=== PATIENT | female | born 1985 | race Hispanic/Latino ===

== ENCOUNTER 2018-07-09 13:23 | Emergency (ER) | payer MEDICAID, SELFPAY ==
[2018-07-09 14:20] LABS: #Basophils 0.1 thou/uL (0.0-0.2); #Eosinphils 0.2 thou/uL (0.0-0.7); #Lymphocytes 2.2 thou/uL (1.20-3.40); #Monocytes 0.3 thou/uL (0.11-0.59); #Neutrophils 3.6 thou/uL (1.40-6.50); %Basophils 0.8 % (0.0-1.0); %Eosinophils 2.4 % (0.0-10.0); %Lymphocytes 34.9 % (21.0-51.0); %Monocytes 4.8 % (0.0-10.0); %Neutrophils 57.1 % (42.0-75.0); Hemoglobin 14.9 g/dL (12.0-16.0); Mean Corpuscular HGB CONC 33.6 g/dL (32.0-36.0); Mean Corpuscular Hemoglobin 28.8 pg (27.0-31.0); Mean Corpuscular Volume 85.7 fL (78.0-98.0); Mean Platelet Volume 7.4 fL (7.4-10.4); Platelet Count 319 thou/uL (130-400); RBC Distribution Width 11.8 % (11.5-14.5); Red Blood Cell (RBC) Count 5.18 mill/uL (4.20-5.40); White Blood Cell (WBC) Count 6.4 thou/uL (4.8-10.8)
[2018-07-09 14:30] LABS: ALT (SGPT) 104 U/L (8-55); AST (SGOT) 132 U/L (5-34); Albumin 4.1 g/dL (3.5-5.0); Alkaline Phosphatase 99 U/L (40-150); Anion Gap 16 mmol/L (10-20); BUN (Urea Nitrogen) 10 mg/dL (7.0-18.7); Bilirubin, Total 0.4 mg/dL (0.2-1.2); Calc. Creatinine Clearance 0 mL/min (70-130); Calcium 9.3 mg/dL (7.8-10.44); Carbon Dioxide 20 mmol/L (22-29); Chloride 103 mmol/L (98-107); Estimated GFR-MDRD Greater than 90; Globulin 3.5 g/dL (2.4-3.5); Glucose 329 mg/dL (70-105); Lipase 28 U/L (8-78); Potassium 3.6 mmol/L (3.5-5.1); Protein, Total 7.6 g/dL (6.0-8.3); Sodium 135 mmol/L (136-145)
[2018-07-09 14:53] LABS: Bilirubin Negative (Negative); Blood, Urine Negative (Negative); Clarity CLEAR (Clear); Glucose, Urine (Dipstick) >=1000 mg/dL (Negative); Leukocyte Negative (Negative); Nitrite Negative (Negative); Protein, Urine (Dipstick) Negative (Neg-Trace); Specific Gravity, Urine 1.039 (1.002-1.036); Urobilinogen 0.2 mg/dL (0.2-1.0); pH, Urine 5.5 (5.0-9.0)
[2018-07-09 14:56] LABS: Pregnancy Test - Urine (BHCG) Negative (Negative); Pregu Control Background? CLEAR/WHITE (CLR/WHITE); Pregu Control Bar Appear? YES (CONTROL BAR); Specific Gravity 1.039 (1.002-1.036)
== END 2018-07-09 15:42 | disposition home or self-care (01) ==
LOC: ERS 13:23
DX: R10.30 Lower abdominal pain, unspecified (principal); E11.9 Type 2 diabetes mellitus without complications; I10 Essential (primary) hypertension; F41.9 Anxiety disorder, unspecified; F32.9 Major depressive disorder, single episode, unspecified
CPT/HCPCS: 36415; 80053; 81003; 81025; 83690; 85025; 99284

== ENCOUNTER 2018-09-14 09:33 | Emergency (ER) | payer OTHER | END 2018-09-14 10:45 | disposition home or self-care (01) | LOC: ERS 09:33 | DX: H00.014 Hordeolum externum left upper eyelid (principal); E11.9 Type 2 diabetes mellitus without complications; I10 Essential (primary) hypertension; F41.9 Anxiety disorder, unspecified; F32.9 Major depressive disorder, single episode, unspecified | CPT/HCPCS: 99283 ==

== ENCOUNTER 2018-10-15 07:30 | Outpatient (CLI) | payer OTHER ==
--- NOTE | 2018-10-15 08:13 | ULT ---
Exam: Transabdominal and endovaginal pelvic ultrasound: HISTORY: Ovarian cysts COMPARISON: None TECHNIQUE: Transabdominal and endovaginal imaging of the pelvis is performed. Ovaries are interrogate d with grayscale, color flow, Doppler imaging and spectral wave form analysis. FINDINGS: Uterus: No myometrial masses. Uterus measurin.2 x 4.6 x 5.5 cm. Endometrium: Homogeneous echotexture. Endometrium diameter: 1.0 cm. Incidental nabothian cyst. Free fluid: None Left ovary: Normal echotexture. Left ovary measurements: 3.2 x 2.3 x 2.2 cm Right ovary: Not seen Right ovary measurement: Not applicable Ovarian Doppler: There is vascular flow to the left ovary. IMPRESSION: No evidence of an ovarian cyst. Transcribed Date/Time: 10/15/2018 8:50 AM
== END 2018-10-15 07:31 | disposition home or self-care (01) ==
LOC: BICULT 07:30
PROVIDERS: ATTEND Family Medicine
DX: Z87.42 Personal history of other diseases of the female genital tract (principal)
CPT/HCPCS: 76856

== ENCOUNTER 2018-10-20 04:50 | Emergency (ER) | payer OTHER ==
[2018-10-20 05:31] LABS: #Basophils 0.1 thou/uL (0.0-0.2); #Eosinphils 0.2 thou/uL (0.0-0.7); #Monocytes 0.5 thou/uL (0.11-0.59); #Neutrophils 5.2 thou/uL (1.40-6.50); %Basophils 0.9 % (0.0-1.0); %Lymphocytes 25.1 % (21.0-51.0); %Monocytes 5.8 % (0.0-10.0); %Neutrophils 66.2 % (42.0-75.0); Hemoglobin 14.2 g/dL (12.0-16.0); Mean Corpuscular HGB CONC 33.7 g/dL (32.0-36.0); Mean Corpuscular Hemoglobin 29.5 pg (27.0-31.0); Mean Corpuscular Volume 87.6 fL (78.0-98.0); Mean Platelet Volume 7.2 fL (7.4-10.4); Platelet Count 313 thou/uL (130-400); RBC Distribution Width 11.7 % (11.5-14.5); White Blood Cell (WBC) Count 7.9 thou/uL (4.8-10.8)
[2018-10-20 05:46] LABS: ALT (SGPT) 97 U/L (8-55); AST (SGOT) 167 U/L (5-34); Albumin 4.1 g/dL (3.5-5.0); Alkaline Phosphatase 138 U/L (40-150); Anion Gap 14 mmol/L (10-20); BUN (Urea Nitrogen) 11 mg/dL (7.0-18.7); Bilirubin, Total 1.1 mg/dL (0.2-1.2); Calc. Creatinine Clearance 0 mL/min (70-130); Calcium 9.5 mg/dL (7.8-10.44); Carbon Dioxide 26 mmol/L (22-29); Chloride 101 mmol/L (98-107); Estimated GFR-MDRD Greater than 90; Glucose 375 mg/dL (70-105); Lipase 24 U/L (8-78); Magnesium 1.6 mg/dL (1.6-2.6); Potassium 4.1 mmol/L (3.5-5.1); Protein, Total 7.1 g/dL (6.0-8.3); Sodium 137 mmol/L (136-145)
[2018-10-20] MEDS ORDERED: Morphine 4 MG/ML VIAL ONE (06:35)
[2018-10-20] MEDS ORDERED: Ketorolac Tromethamine 30 MG/ML VIAL ONE (06:35)
[2018-10-20] MEDS ORDERED: Ondansetron PF 4 MG/2 ML Vial ONE (06:35)
--- NOTE | 2018-10-20 07:19 | ULT ---
GALLBLADDER ULTRASOUND: Date: 10/20/18 CLINICAL HISTORY: Abdominal pain. FINDINGS: There is evidence of shadowing cholelithiasis. No wall thickening of the gallbladder is demonstrated. The common duct is normal at 4 mm. Increased echogenicity of the hepatic parenchyma is present. No a scites. Orantes's sign reported as negative by quality assurance representative. IMPRESSION: 1. Sonographic evidence of cholelithiasis. No sonographic findings to indicate acute cholecystitis. 2. Findings which likely are related to hepatic steatosis. This could be further assessed with dedic ated liver function enzymes. POS: AMANDA
[2018-10-20 07:26] LABS: Bilirubin Negative (Negative); Blood, Urine Negative (Negative); Clarity CLEAR (Clear); Glucose, Urine (Dipstick) >=1000 mg/dL (Negative); Leukocyte Negative (Negative); Nitrite Negative (Negative); Protein, Urine (Dipstick) Negative (Neg-Trace); pH, Urine 5.5 (5.0-9.0)
[2018-10-20 07:35] LABS: Specific Gravity, Urine 1.043 (1.002-1.036)
[2018-10-20 07:38] LABS: Pregnancy Test - Urine (BHCG) Negative (Negative); Pregu Control Background? CLEAR/WHITE (CLR/WHITE); Pregu Control Bar Appear? YES (CONTROL BAR); Specific Gravity 1.043 (1.002-1.036)
--- NOTE | 2018-10-20 07:52 | RAD ---
EXAM: Single view of the chest HISTORY: Right chest pain for one hour COMPARISON: None FINDINGS: Single view of the chest shows a normal sized cardiomediastinal silhouette. There is no ana dence of consolidation, mass, or pleural effusion. The bones are unremarkable. IMPRESSION: No evidence of acute cardiopulmonary disease
--- NOTE | 2018-10-20 12:42 | CON ---
DATE OF CONSULTATION: CHIEF COMPLAINT: Right upper quadrant abdominal pain. HISTORY OF PRESENT ILLNESS: The patient is a 33-year-old female, who reports a 12-hour history of right upper quadrant pain radiating to back, associated with nausea. No vomiting. No fever. Her last meal was at 7 p.m. She says she has had lesser episodes of this. PAST MEDICAL HISTORY: Morbid obesity, hypertension, and diabetes. PAST SURGICAL HISTORY: She has had a section. MEDICATIONS: 1. Metformin. 2. Exforge for hypertension. ALLERGIES: NO KNOWN DRUG ALLERGIES. SOCIAL HISTORY: She is . No tobacco. Moderate alcohol. Unemployed. FAMILY HISTORY: Heart disease. PHYSICAL EXAMINATION: GENERAL: She is afebrile, pulse 79, blood pressure 138/92, and oxygen saturation 98%. GENERAL: She is an obese female, in no apparent distress. HEENT: No jaundice. LUNGS: Clear. HEART: Regular rate and rhythm. ABDOMEN: Obese, very mild tenderness in the right upper quadrant. No palpable masses. No hernias. EXTREMITIES: Unremarkable. LABORATORY DATA: White count 7.9, H and H of 14 and 42, and platelet count 313. Electrolytes are fine, but her glucose is elevated at 375. Her AST is 167, ALT of 97, and bilirubin and alkaline phosphatase normal. She had an ultrasound that shows cholelithiasis, but no wall thickening or pericholecystic fluid. Normal common bile duct size. ASSESSMENT: Severe biliary colic. PLAN: I offered her surgery today. She says this is not convenient for her. She would like to go home, come back to the office and reschedule. She will stay on a low-fat diet in the mean time. Job ID: [id number]
== END 2018-10-20 10:41 | disposition home or self-care (01) ==
LOC: ERS 04:50
DX: K80.70 Calculus of gallbladder and bile duct without cholecystitis without obstruction (principal); I10 Essential (primary) hypertension; E11.9 Type 2 diabetes mellitus without complications; F41.9 Anxiety disorder, unspecified; F32.9 Major depressive disorder, single episode, unspecified; Z79.84 Long term (current) use of oral hypoglycemic drugs
CPT/HCPCS: 36415; 71045; 76705; 80053; 81003; 81025; 83690; 83735; 84484; 85025; 93005; 96361; 96374; 96375; J1885; J2270; J2405

== ENCOUNTER 2018-10-27 00:20 | Outpatient (CLI) | payer OTHER ==
[2018-10-27 11:08] LABS: #Eosinphils 0.2 thou/uL (0.0-0.7); #Lymphocytes 2.5 thou/uL (1.20-3.40); #Monocytes 0.3 thou/uL (0.11-0.59); #Neutrophils 3.4 thou/uL (1.40-6.50); %Basophils 0.7 % (0.0-1.0); %Monocytes 4.4 % (0.0-10.0); %Neutrophils 52.8 % (42.0-75.0); Hemoglobin 14.6 g/dL (12.0-16.0); Mean Corpuscular HGB CONC 34.6 g/dL (32.0-36.0); Mean Corpuscular Volume 86.7 fL (78.0-98.0); Mean Platelet Volume 7.5 fL (7.4-10.4); Platelet Count 312 thou/uL (130-400); RBC Distribution Width 11.6 % (11.5-14.5); Red Blood Cell (RBC) Count 4.86 mill/uL (4.20-5.40); White Blood Cell (WBC) Count 6.4 thou/uL (4.8-10.8)
[2018-10-27 11:22] LABS: BHCG - Serum Negative (NEGATIVE); Pregs Control Background? CLEAR/WHITE (CLR/WHITE); Pregs Control Bar Appear? YES (CONTROL BAR)
[2018-10-27 11:30] LABS: ALT (SGPT) 118 U/L (8-55); AST (SGOT) 114 U/L (5-34); Albumin 4.4 g/dL (3.5-5.0); Alkaline Phosphatase 113 U/L (40-150); Anion Gap 14 mmol/L (10-20); BUN (Urea Nitrogen) 11 mg/dL (7.0-18.7); Bilirubin, Direct 0.2 mg/dL (0.1-0.3); Bilirubin, Total 0.6 mg/dL (0.2-1.2); Calc. Creatinine Clearance 0 mL/min (70-130); Calcium 9.8 mg/dL (7.8-10.44); Carbon Dioxide 27 mmol/L (22-29); Chloride 100 mmol/L (98-107); Estimated GFR-MDRD Greater than 90; Globulin 3.3 g/dL (2.4-3.5); Glucose 274 mg/dL (70-105); Potassium 3.9 mmol/L (3.5-5.1); Protein, Total 7.7 g/dL (6.0-8.3); Sodium 137 mmol/L (136-145)
--- NOTE | 2018-10-28 22:54 | EKG ---
Test Reason : Blood Pressure : / mmHG Vent. Rate : 079 BPM Atrial Rate : 079 BPM P-R Int : 140 ms QRS Dur : 090 ms QT Int : 374 ms P-R-T Axes : -49 071 057 degrees QTc Int : 428 ms Sinus rhythm rate of 79 J point elevation, suggests early repolarization. Abnormal ECG When compared with ECG of 20-OCT-2018 05:02, (Unconfirmed) No significant change was found Confirmed by ROSA MCKENNA ([id number]) on 10/28/2018 10:54:14 PM Referred By: IKE Confirmed By:ROSA MCKENNA
== END 2018-10-27 00:21 | disposition home or self-care (01) ==
LOC: LABBT 00:20
PROVIDERS: ATTEND Surgery
DX: Z01.818 Encounter for other preprocedural examination (principal); K80.20 Calculus of gallbladder without cholecystitis without obstruction
CPT/HCPCS: 80053; 80076; 84703; 85025; 93005; 93010

== ENCOUNTER 2018-10-29 08:20 | Day surgery (SDC) | payer OTHER ==
[2018-10-27 09:29] VITALS: BMI 51.6
[2018-10-29] MEDS ORDERED: Sodium Chloride 0.9% 100 ML ONE (10:12)
[2018-10-29] MEDS ORDERED: cefOXitin 2 GM VIAL ONE (10:12)
[2018-10-29] MEDS ORDERED: Insulin Regular 300 UNITS/3 ML VIAL ONE (10:45)
[2018-10-29] MEDS ORDERED: Bupivacaine/Epinephrine 0.25% 30 ML VIAL ONE (11:03)
[2018-10-29] MEDS ORDERED: Lidocaine 2% Jelly 5 ML TUBE ONE (11:15)
[2018-10-29] MEDS ORDERED: Fentanyl 100 MCG/2 ML VIAL ONE ×3 (11:15→13:58)
--- NOTE | 2018-10-29 15:21 | OP ---
DATE OF PROCEDURE: 10/29/2018 PREOPERATIVE DIAGNOSIS: Symptomatic cholelithiasis. PROCEDURE PERFORMED: Laparoscopic cholecystectomy. INDICATIONS: A 33-year-old female, morbidly obese, who has been to the emergency room several times for severe right upper quadrant pain. Ultrasound shows cholelithiasis. FINDINGS: She had a single large stone. She had a very fatty liver. DESCRIPTION OF PROCEDURE: After informed consent was obtained, the patient was taken to the operating room, given general endotracheal anesthesia, placed in supine position. Abdomen was prepped and draped in usual fashion. Local anesthesia infiltrated subcutaneously and deep, and an upper midline incision was performed. Subcu divided sharply. The fascia grasped and 2 stay sutures were placed in either side of midline. We had to use appendiceal retractors due to the depth of her adipose tissue. The fascia was visualized, incised with 11 blade. Digital palpation revealed no local adhesions. A blunt 12 mm trocar inserted. Pneumoperitoneum was created to a pressure of 15 mmHg. A 0-degree laparoscope was inserted under direct vision. Three 5 mm ports were placed subcostally. Gallbladder grasped, advanced superiorly. The peritoneum was dissected distally to expose the cystic duct and artery. These were triply ligated with hemoclips and divided. The gallbladder removed from its fossa utilizing electrocautery, removed from the abdomen through the lower midline incision. Hemostasis achieved with electrocautery. The fascia closed with interrupted 2-0 Vicryl suture. The skin closed with interrupted 4-0 Rapide. A 3-0 Vicryl was also placed in the subcu in the midline incision. Dermabond applied. The patient tolerated the procedure well, transferred to Recovery in good condition. Sponge and needle count verified correct x2. Job ID: [id number]
[2018-10-29] MEDS ORDERED: HYDROcodone/Acetaminophen 5/325 mg Tablet ONE (15:22)
[2018-10-29] MEDS ORDERED: Glycopyrrolate 0.2 MG/ML 5 ML SYRINGE ONE (15:26)
[2018-10-29] MEDS ORDERED: Rocuronium Bromide 10 MG/ML (10ML VIAL) ONE (15:26)
[2018-10-29] MEDS ORDERED: Ketorolac Tromethamine 30 MG/ML VIAL ONE (15:26)
[2018-10-29] MEDS ORDERED: Ondansetron PF 4 MG/2 ML Vial ONE (15:26)
[2018-10-29] MEDS ORDERED: Lidocaine 1% PF 5 ML VIAL ONE (15:26)
[2018-10-29] MEDS ORDERED: PHENYLEPHRINE-NS 100 MCG/ML 10 ML SYRINGE ONE (15:26)
[2018-10-29] MEDS ORDERED: PROPOFOL 200 MG/20 ML VIAL ONE (15:26)
== END 2018-10-29 16:15 | disposition home or self-care (01) ==
LOC: SDC 08:20
PROVIDERS: ATTEND Surgery
PROC: 0FT44ZZ Resection of Gallbladder, Percutaneous Endoscopic Approach (ICD-10-PCS; principal; 2018-10-29)
DX: K80.10 Calculus of gallbladder with chronic cholecystitis without obstruction (principal); K76.0 Fatty (change of) liver, not elsewhere classified; F41.9 Anxiety disorder, unspecified; J45.909 Unspecified asthma, uncomplicated; E78.00 Pure hypercholesterolemia, unspecified; F32.9 Major depressive disorder, single episode, unspecified; E11.9 Type 2 diabetes mellitus without complications; I10 Essential (primary) hypertension; E66.01 Morbid (severe) obesity due to excess calories; Z68.43 Body mass index [BMI] 50.0-59.9, adult; Z79.84 Long term (current) use of oral hypoglycemic drugs; Z79.899 Other long term (current) drug therapy
CPT/HCPCS: 36416; 88304; J0131; J0694; J1815; J1885; J2001; J2405; J2704; J3010; J3490

== ENCOUNTER 2018-12-18 07:10 | Emergency (ER) | payer OTHER ==
[2018-12-18 08:12] LABS: Bilirubin Negative (Negative); Blood, Urine Negative (Negative); Clarity CLEAR (Clear); Glucose, Urine (Dipstick) 100 mg/dL (Negative); Leukocyte Trace (Negative); Nitrite Negative (Negative); Protein, Urine (Dipstick) Negative (Neg-Trace); Specific Gravity, Urine 1.014 (1.002-1.036); Urobilinogen 0.2 mg/dL (0.2-1.0)
[2018-12-18 08:13] LABS: Bacteria/HPF Rare-Few HPF (None Seen); Hyaline Casts/LPF 0-3 HYALINE CAST LPF (0-3 Hyaline); Pathc Cast-AUWi Flag 0.13 (0-2.49); RBC/HPF 0-3 HPF (0-3); Squamous Epithelial 0-3 HPF (0-3)
[2018-12-18 08:16] LABS: Pregnancy Test - Urine (BHCG) Negative (Negative)
[2018-12-18 08:17] LABS: Pregu Control Background? CLEAR/WHITE (CLR/WHITE); Pregu Control Bar Appear? YES (CONTROL BAR); Specific Gravity 1.014 (1.002-1.036)
== END 2018-12-18 08:54 | disposition home or self-care (01) ==
LOC: ERS 07:10
DX: R10.30 Lower abdominal pain, unspecified (principal); E11.9 Type 2 diabetes mellitus without complications; R11.0 Nausea; I10 Essential (primary) hypertension; F41.9 Anxiety disorder, unspecified; F32.9 Major depressive disorder, single episode, unspecified; Z79.899 Other long term (current) drug therapy; Z79.84 Long term (current) use of oral hypoglycemic drugs
CPT/HCPCS: 81003; 81015; 81025; 99284

== ENCOUNTER 2019-03-24 07:17 | Emergency (ER) | payer OTHER ==
[2019-03-24 08:01] LABS: Pregnancy Test - Urine (BHCG) Negative (Negative); Pregu Control Bar Appear? YES (CONTROL BAR)
[2019-03-24 08:02] LABS: Pregu Control Background? CLEAR/WHITE (CLR/WHITE)
[2019-03-24 08:16] LABS: Bilirubin Negative (Negative); Blood, Urine Negative (Negative); Clarity Clear (Clear); Glucose, Urine (Dipstick) Greater than 1000 mg/dL (Negative); Leukocyte Negative Leu/uL (Negative); Nitrite Negative (Negative); Protein, Urine (Dipstick) Negative (Neg-Trace); Urobilinogen Normal mg/dL (Less than 2)
== END 2019-03-24 09:54 | disposition home or self-care (01) ==
LOC: ERS 07:17
DX: M54.5 Low back pain (principal); G89.29 Other chronic pain; E11.9 Type 2 diabetes mellitus without complications; I10 Essential (primary) hypertension; F41.9 Anxiety disorder, unspecified; F32.9 Major depressive disorder, single episode, unspecified; Z79.899 Other long term (current) drug therapy; Z79.84 Long term (current) use of oral hypoglycemic drugs
CPT/HCPCS: 81003; 81025; 96372; 99283

== ENCOUNTER 2019-04-12 10:24 | Emergency (ER) | payer OTHER ==
[2019-04-12 11:32] LABS: Bilirubin Negative (Negative); Blood, Urine Negative (Negative); Clarity Clear (Clear); Glucose, Urine (Dipstick) Greater than 1000 mg/dL (Negative); Leukocyte Negative Leu/uL (Negative); Nitrite Negative (Negative); Protein, Urine (Dipstick) Negative (Neg-Trace); Urobilinogen Normal mg/dL (Less than 2)
[2019-04-12 11:34] LABS: Pregnancy Test - Urine (BHCG) Negative (Negative); Pregu Control Background? CLEAR/WHITE (CLR/WHITE); Pregu Control Bar Appear? YES (CONTROL BAR); Specific Gravity 1.029 (1.002-1.036)
== END 2019-04-12 12:19 | disposition home or self-care (01) ==
LOC: ERS 10:24
DX: E11.65 Type 2 diabetes mellitus with hyperglycemia (principal); I10 Essential (primary) hypertension; F41.9 Anxiety disorder, unspecified; F32.9 Major depressive disorder, single episode, unspecified; Z79.84 Long term (current) use of oral hypoglycemic drugs
CPT/HCPCS: 36416; 81003; 81025; 99283

== ENCOUNTER 2019-04-16 07:28 | Outpatient (CLI) | payer OTHER ==
--- NOTE | 2019-04-16 08:34 | RAD ---
XR Lumbar Spine 2 Or 3 View: 04/16/2019 12:00 AM CLINICAL INDICATION: Low back pain COMPARISON: None. FINDINGS: Fracture:No fracture. Arthropathy:Mild facet sclerosis. Mild levocurvature of lumbar spine. Incidental findings:None of significance. IMPRESSION: 1. No acute osseous abnormality.
== END 2019-04-16 07:29 | disposition home or self-care (01) ==
LOC: BICRAD 07:28
PROVIDERS: ATTEND Family Medicine
DX: M54.5 Low back pain (principal)
CPT/HCPCS: 72100

== ENCOUNTER 2020-07-04 07:51 | Emergency (ER) | payer OTHER ==
[2020-07-04 08:22] LABS: #Basophils 0.1 thou/uL (0.0-0.2); #Eosinphils 0.2 thou/uL (0.0-0.7); #Monocytes 0.4 thou/uL (0.11-0.59); %Basophils 0.9 % (0.0-1.0); %Eosinophils 2.9 % (0.0-10.0); %Lymphocytes 39.5 % (21.0-51.0); %Monocytes 4.7 % (0.0-10.0); %Neutrophils 52.1 % (42.0-75.0); Hemoglobin 15.4 g/dL (12.0-16.0); Mean Corpuscular HGB CONC 33.6 g/dL (32.0-36.0); Mean Corpuscular Hemoglobin 29.2 pg (27.0-31.0); Mean Corpuscular Volume 86.9 fL (78.0-98.0); Mean Platelet Volume 7.5 fL (7.4-10.4); Platelet Count 387 thou/uL (130-400); RBC Distribution Width 11.2 % (11.5-14.5); Red Blood Cell (RBC) Count 5.27 mill/uL (4.20-5.40); White Blood Cell (WBC) Count 7.7 thou/uL (4.8-10.8)
[2020-07-04 08:43] LABS: ALT (SGPT) 48 U/L (8-55); AST (SGOT) 42 U/L (5-34); Albumin 4.4 g/dL (3.5-5.0); Alkaline Phosphatase 108 U/L (40-110); Anion Gap 16 mmol/L (10-20); BUN (Urea Nitrogen) 11 mg/dL (7.0-18.7); Bilirubin, Total 0.4 mg/dL (0.2-1.2); Calc. Creatinine Clearance 0 mL/min (70-130); Calcium 9.2 mg/dL (7.8-10.44); Carbon Dioxide 24 mmol/L (22-29); Chloride 100 mmol/L (98-107); Globulin 3.5 g/dL (2.4-3.5); Glucose 386 mg/dL (70-105); Lipase 29 U/L (8-78); Potassium 4.4 mmol/L (3.5-5.1); Protein, Total 7.9 g/dL (6.0-8.3); Sodium 136 mmol/L (136-145)
[2020-07-04 09:09] LABS: Pregnancy Test - Urine (BHCG) Negative (Negative)
[2020-07-04 09:10] LABS: Pregu Control Background? CLEAR/WHITE (CLR/WHITE); Pregu Control Bar Appear? YES (CONTROL BAR); Specific Gravity 1.043 (1.002-1.036)
[2020-07-04 09:22] LABS: Bilirubin Negative (Negative); Blood, Urine Negative (Negative); Clarity Clear (Clear); Glucose, Urine (Dipstick) Greater than 1000 mg/dL (Negative); Ketone, Urine 10 mg/dL (Negative); Leukocyte Negative Leu/uL (Negative); Nitrite Negative (Negative); Protein, Urine (Dipstick) Negative (Neg-Trace); Specific Gravity, Urine 1.045 (1.002-1.036); Urobilinogen Normal mg/dL (Less than 2)
[2020-07-04] MEDS ORDERED: Iopamidol-370 76% 500 ML 1 ML ONE (09:26)
--- NOTE | 2020-07-04 10:29 | CT ---
CT Abdomen Pelvis W Con History: Left upper quadrant pain Comparison: None. Findings: 3 mm nodule right middle lobe. No pericardial effusion. No significant pleural effusion. Small ventral fat-containing supraumbilical hernia with a 2.5 cm neck. Prior cholecystectomy. The spl een, pancreas, adrenal glands, kidneys are unremarkable. No hydronephrosis. Adrenal glands are normal. No free intraperitoneal gas or fluid. No dilated loops of large or small bowel. The appendix is visualized and is normal. Bilateral L5 pars interarticularis defects without signific ant listhesis. No acute osseous abnormality. Impression: 1. Omental fat-containing supraumbilical hernia with a 2.5 cm neck. No inflammation. 2. Normal appendix. 3. No acute inflammatory process within the abdomen or pelvis.
== END 2020-07-04 11:15 | disposition home or self-care (01) ==
LOC: ERS 07:51
DX: R10.12 Left upper quadrant pain (principal); E11.65 Type 2 diabetes mellitus with hyperglycemia; I10 Essential (primary) hypertension
CPT/HCPCS: 74177; 80053; 81003; 81025; 83690; 85025; Q9967

== ENCOUNTER 2020-09-07 11:33 | Outpatient (CLI) | payer OTHER ==
[2020-09-07 21:51] LABS: SARS-CoV-2 PCR by NAA Not Detected (NotDetected)
== END 2020-09-07 11:34 | disposition home or self-care (01) ==
LOC: LABBT 11:33
PROVIDERS: ATTEND Internal Medicine Gastroenterology
DX: K76.0 Fatty (change of) liver, not elsewhere classified (principal); R10.12 Left upper quadrant pain; E11.9 Type 2 diabetes mellitus without complications; Z20.822 Contact with and (suspected) exposure to COVID-19
CPT/HCPCS: 87635; U0003; U0005

== ENCOUNTER 2020-09-12 05:48 | Day surgery (SDC) | payer OTHER ==
[2020-09-08 13:10] VITALS: BMI 50.3
[2020-09-12] MEDS ORDERED: Fentanyl 100 MCG/2 ML VIAL ONE (07:47)
[2020-09-12] MEDS ORDERED: PROPOFOL 200 MG/20 ML VIAL ONE (10:13)
== END 2020-09-12 09:15 | disposition home or self-care (01) ==
LOC: SDC 05:48
PROVIDERS: ATTEND Internal Medicine Gastroenterology
PROC: 0DB98ZX Excision of Duodenum, Via Natural or Artificial Opening Endoscopic, Diagnostic (ICD-10-PCS; principal; 2020-09-12)
PROC: 0DB68ZX Excision of Stomach, Via Natural or Artificial Opening Endoscopic, Diagnostic (ICD-10-PCS; principal; 2020-09-12)
DX: K29.50 Unspecified chronic gastritis without bleeding (principal); K76.0 Fatty (change of) liver, not elsewhere classified; E11.9 Type 2 diabetes mellitus without complications; I10 Essential (primary) hypertension; F31.9 Bipolar disorder, unspecified; E66.9 Obesity, unspecified; Z68.43 Body mass index [BMI] 50.0-59.9, adult; Z79.84 Long term (current) use of oral hypoglycemic drugs; Z79.899 Other long term (current) drug therapy
CPT/HCPCS: 88305; 88312; J2704; J3010

== ENCOUNTER 2021-04-06 07:13 | Emergency (ER) | payer OTHER | END 2021-04-06 09:00 | disposition home or self-care (01) | LOC: ERS 07:13 | DX: J02.9 Acute pharyngitis, unspecified (principal); Z71.1 Person with feared health complaint in whom no diagnosis is made; E11.9 Type 2 diabetes mellitus without complications; I10 Essential (primary) hypertension; Z79.899 Other long term (current) drug therapy | CPT/HCPCS: 99282 ==

== ENCOUNTER 2021-07-12 07:07 | Emergency (ER) | payer OTHER ==
[2021-07-12] MEDS ORDERED: Acetaminophen 500 MG TAB ONE (07:52)
== END 2021-07-12 09:39 | disposition home or self-care (01) ==
LOC: ERS 07:07
DX: M54.50 Low back pain, unspecified (principal); I10 Essential (primary) hypertension; E11.9 Type 2 diabetes mellitus without complications
CPT/HCPCS: 99283

== ENCOUNTER 2022-09-21 09:53 | Emergency (ER) | payer OTHER ==
[2022-09-21 10:19] LABS: #Eosinphils 0.1 thou/uL (0.0-0.7); #Lymphocytes 0.9 thou/uL (1.20-3.40); #Monocytes 0.3 thou/uL (0.11-0.59); #Neutrophils 10.1 thou/uL (1.40-6.50); %Basophils 0.4 % (0.0-1.0); %Eosinophils 1.3 % (0.0-10.0); %Lymphocytes 7.7 % (21.0-51.0); %Monocytes 2.3 % (0.0-10.0); %Neutrophils 88.3 % (42.0-75.0); Hemoglobin 16.2 g/dL (12.0-16.0); Mean Corpuscular HGB CONC 34.6 g/dL (32.0-36.0); Mean Corpuscular Hemoglobin 29.8 pg (27.0-31.0); Mean Corpuscular Volume 86.2 fl (78.0-98.0); Platelet Count 328 10x3/uL (130-400); RBC Distribution Width 11.3 % (11.5-14.5); Red Blood Cell (RBC) Count 5.43 mill/uL (4.20-5.40); White Blood Cell (WBC) Count 11.5 10x3/uL (4.8-10.8)
[2022-09-21] MEDS ORDERED: Ondansetron ODT 4 MG TAB ONE (10:24)
[2022-09-21 10:44] LABS: ALT (SGPT) 31 U/L (8-55); AST (SGOT) 40 U/L (5-34); Albumin 4.3 g/dL (3.5-5.0); Alkaline Phosphatase 131 U/L (40-110); Anion Gap 17 mmol/L (10-20); BUN (Urea Nitrogen) 11 mg/dL (7.0-18.7); Bilirubin, Total 0.6 mg/dL (0.2-1.2); Calc. Creatinine Clearance 0 mL/min (70-130); Carbon Dioxide 23 mmol/L (22-29); Chloride 100 mmol/L (98-107); Estimated GFR 116; Globulin 3.2 g/dL (2.4-3.5); Glucose 384 mg/dL (70-105); Protein, Total 7.5 g/dL (6.0-8.3); Sodium 136 mmol/L (136-145)
[2022-09-21 11:19] LABS: Bilirubin Negative (Negative); Blood, Urine Negative (Negative); Clarity Clear (Clear); Glucose, Urine (Dipstick) Greater than 1000 mg/dL (Negative); Ketone, Urine 10 mg/dL (Negative); Leukocyte Negative Leu/uL (Negative); Nitrite Negative (Negative); Protein, Urine (Dipstick) 10 mg/dL (Neg-Trace); Urobilinogen Normal mg/dL (Less than 2); pH, Urine 5.5 (5.0-9.0)
[2022-09-21 11:21] LABS: Pregnancy Test - Urine (BHCG) Negative (Negative)
[2022-09-21 11:22] LABS: Pregu Control Background? CLEAR/WHITE (CLR/WHITE); Pregu Control Bar Appear? YES (CONTROL BAR)
== END 2022-09-21 11:53 | disposition home or self-care (01) ==
LOC: ERS 09:53
DX: M54.9 Dorsalgia, unspecified (principal); E11.9 Type 2 diabetes mellitus without complications; I10 Essential (primary) hypertension
CPT/HCPCS: 36415; 80053; 81003; 81025; 83690; 85025; 94760; 99284; Q0162

== ENCOUNTER 2024-05-16 07:51 | Emergency (ER) | payer MEDICAID, OTHER ==
[2024-05-16] MEDS ORDERED: Sodium Chloride 0.9% 100 ML ONE (08:23)
[2024-05-16] MEDS ORDERED: Ampicillin/Sulbactam 3 GM VIAL ONE (08:23)
[2024-05-16] MEDS ORDERED: Ketorolac Tromethamine 30 MG (1 mL) VIAL ONE (08:29)
[2024-05-16 08:49] LABS: #Basophils 0.09 10x3/uL (0.0-0.2); %Basophils 0.9 % (0.0-1.0); %Eosinophils 1.6 % (0.0-10.0); %Lymphocytes 22.8 % (21.0-51.0); %Monocytes 6.2 % (0.0-10.0); Hematocrit 37.9 % (36.0-47.0); Hemoglobin 13.2 g/dL (12.0-16.0); Mean Corpuscular HGB CONC 34.8 g/dL (32.0-36.0); Mean Corpuscular Hemoglobin 30.2 pg (27.0-31.0); Mean Corpuscular Volume 86.7 fL (78.0-98.0); Mean Platelet Volume 9.4 fL (7.4-10.4); Platelet Count 386 10x3/uL (130-400); RBC Distribution Width 12.3 % (11.5-14.5); Red Blood Cell (RBC) Count 4.37 mill/uL (4.20-5.40)
[2024-05-16 09:10] LABS: ALT (SGPT) 20 U/L (8-55); AST (SGOT) 13 U/L (5-34); Albumin 3.8 g/dL (3.5-5.0); Alkaline Phosphatase 115 U/L (40-110); Anion Gap 14 mmol/L (10-20); BUN (Urea Nitrogen) 9 mg/dL (7.0-18.7); Bilirubin, Total 0.5 mg/dL (0.2-1.2); Calc. Creatinine Clearance 0 mL/min (70-130); Calcium 9.2 mg/dL (7.8-10.44); Carbon Dioxide 25 mmol/L (22-29); Chloride 102 mmol/L (98-107); Estimated GFR 120; Globulin 3.4 g/dL (2.4-3.5); Glucose 318 mg/dL (70-105); Potassium 3.9 mmol/L (3.5-5.1); Protein, Total 7.2 g/dL (6.0-8.3); Sodium 137 mmol/L (136-145)
[2024-05-16 09:24] LABS: BHCG - Serum Negative (NEGATIVE); Pregs Control Background? CLEAR/WHITE (CLR/WHITE); Pregs Control Bar Appear? YES (CONTROL BAR)
[2024-05-16] MEDS ORDERED: Iopamidol-370 76% 500 ML MDV (1 ML CHARGE) ONE (11:22)
== END 2024-05-16 10:18 | disposition home or self-care (01) ==
LOC: ERS 07:51
DX: K04.7 Periapical abscess without sinus (principal); L03.211 Cellulitis of face; I10 Essential (primary) hypertension; E11.9 Type 2 diabetes mellitus without complications; Z55.6 Problems related to health literacy; Z79.899 Other long term (current) drug therapy
CPT/HCPCS: 70491; 80053; 84703; 85025; 96374; 96375; J0295; J1885; Q9967